=== PATIENT | female | born 1940 | race Caucasian/White ===

== ENCOUNTER → 2021-02-05 | Outpatient (CLI) | payer BC, MEDICARE ==
[~2021-02-05] MED LIST: BETA-CAROTENE PO; CALCIUM PO; ECOTRIN81 MG PO; ELIQUIS2.5 MG PO; EVISTA60 MG PO; FISH OIL 500 M1 EAC1 PO; FORTEO 250250 MCG/ML SQ; LOVENOX SY30 MG/0.3 SQ; OCTIVITE PO; PERCOCET 7.5-31 EACH PO; VITAMIN C PO; VITAMIN D32000 UNI1 PO; VITAMIN E PO; ZIAC 2.5-6.251 EACH PO
== END ==
LOC: KOH-I 10:19
DX: N20.0 Calculus of kidney (principal)
CPT/HCPCS: 74018

== ENCOUNTER → 2021-07-05 | Outpatient (CLI) | payer BC, MEDICARE | LOC: MAMO 05-17 14:00 | DX: Z51.81 Encounter for therapeutic drug level monitoring (principal) | CPT/HCPCS: 77063; 77067 ==

== ENCOUNTER → 2021-07-20 | Outpatient (CLI) | payer BC, MEDICARE ==
[~2021-07-20] VITALS: Ht 157.5 cm; Wt 55.8 kg
== END ==
LOC: OPSV 05-29 12:00
DX: M81.0 Age-related osteoporosis without current pathological fracture (principal)
CPT/HCPCS: 96365; J3489

== ENCOUNTER → 2021-09-21 | Outpatient (CLI) | payer BC, MEDICARE | LOC: RAD 07:38 | DX: M25.532 Pain in left wrist (principal); M25.552 Pain in left hip | CPT/HCPCS: 73110; 73502 ==

== ENCOUNTER → 2021-10-01 | Outpatient (CLI) | payer BC, MEDICARE | LOC: RAD 07:57 | DX: M25.532 Pain in left wrist (principal) | CPT/HCPCS: 73110 ==